=== PATIENT | male | born 1980 | race Caucasian/White ===

== ENCOUNTER 2024-05-29 10:37 | Emergency (ER) | payer BC, SELFPAY ==
[2024-05-29 10:44] VITALS: BP 141/93
[2024-05-29 11:13] VITALS: BMI 29.3
--- NOTE | 2024-05-29 11:43 | ED.GENMED ---
History of Present Illness
General
Chief Complaint: Allergic Reaction
Source: patient
Exam Limitations: none
Time Seen by Provider: 05/29/24 11:31
History of Present Illness
History of Present Illness:
See MDM
Past History
Past History
ED Past Medical History: None
ED Past Surgical History: None
Social History
Tobacco: Non-smoker
Phy Exam
Physical Exam
Physical Exam:
See MDM
Course
Orders/Labs/Results
Orders:
Orders
05/29/24 11:43
Complete Blood Count/With Diff Urgent
Comprehensive Metabolic Panel Urgent
Abnormal Lab Results
05/29/24
11:43
Absolute Neuts (auto) 6.8 H 10^3/uL
(1.4-6.5)
Absolute Lymphs (auto) 0.7 L 10^3/uL
(1.2-3.4)
Neutrophils % 89.7 H %
(42.2-75.2)
Lymphocytes % 8.6 L %
(20.5-51.1)
Monocytes % 1.3 L %
(1.7-9.3)
Glucose 115 H mg/dl
(70-99)
Albumin 5.2 H g/dl
(3.5-5.0)
05/29/24 11:43
05/29/24 11:43
Vital Signs
Initial and Last Documented VS:
Initial Vital Signs
Temp Pulse Resp BP Pulse Ox
98.2 F 80 16 141/93 98
05/29/24 10:44 05/29/24 10:44 05/29/24 10:44 05/29/24 10:44 05/29/24 10:44
Last Documented Vital Signs
Temp Pulse Resp BP Pulse Ox
98.2 F 80 16 141/93 98
05/29/24 10:44 05/29/24 10:44 05/29/24 10:44 05/29/24 10:44 05/29/24 10:44
MDM/Problems Addressed
Differential Diagnosis Includes:
HPI and MDM Narrative:
44-year-old male presenting for evaluation of mouth tingling. He noted it earlier today. Patient went to urgent care yesterday for presumed allergic reaction. He noted hives and swelling to both hands and feet. He was started on prednisone.
Patient woke up this morning and noted tingling in his lips. The pain in his hands and feet have improved somewhat. On exam, there is no evidence of angioedema or anaphylaxis. He does have very small sores to the inside of his lips and on his
uvula. There is very minimal sores noted on hands and feet as well. We discussed the likelihood of a viral syndrome such as coxsackie. Given the mouth tingling, will check calcium levels. Although less likely, we did entertain the possibility of
some autoimmune issue. We discussed that this should at least be followed up with PCP to entertain alternative diagnosis
Physical exam
General: Well appearing and non-toxic
HEENT: protecting airway. Small sores to inside of lips and uvula. Posterior pharynx clear
Neck: supple. No stridor
CV: No evidence of cyanosis
Resp: No accessory muscle use
Abd: Non-distended
Extremities: No deformities
Neuro: alert
Psych: Normal affect
Skin: Small sores to both hands and feet
Problems Addressed including Acute and Chronic Conditions affecting care:
1. Mouth tingling
Acuity: acute
Prognosis: stable
Details: Will check calcium levels
2. Hand and feet discomfort
Acuity: acute
Prognosis: stable
Details: Likely viral syndrome such as coxsackie
Updates
Labs without significantly abnormal blood work. Discussed follow-up with PCP
Differential Diagnosis (but not limited to): Coxsackie, hypocalcemia, allergic reaction
Testing considered: CANDIS testing
Drug therapy (if applicable): OTC meds, please see d/c instruction regarding Rx drugs
Amount and/or Complexity of Data Reviewed
Clinical info obtained from: Patient
External data reviewed: N/A
Labs I independently reviewed (but not limited to): Calcium normal
Radiology: N/A
Pulse Ox: not hypoxic
EKG independently reviewed: N/A
Toll Line Mechanic: N/A
Critical Care: N/A
Risk of Complication:
Social Determinants of health: Good social support
Discussed with other providers: N/A
Escalation of Care includes Admit/Obs: After being observed in the Emergency Department, pt stable for discharge.
Occasional wrong word or 'sound a like' substitutions may have occurred due to the inherent limitations of voice recognition software. Read the chart carefully and recognize, using context, where substitutions have occurred.
*Critical Care Note
Total Time (30-74mins, 75-104mins- exclusive of procedures): Not Applicable
ED Attending Note
-
Portions of this chart may have been created with voice recognition software.� Occasional wrong word or��sound alike� substitutions may have occurred due to the inherent limitations of voice recognition software.
Discharge Plan
Departure
Patient Disposition: Home (Routine Discharge)
Date of Disposition: 05/29/24
Time of Disposition: 12:48
Patient with high blood pressure during this ER visit?: No
Discharge Problem:
Paresthesia of lower lip
Prescriptions:
No Action
prednisone 20 MG tablet
40 mg PO .TAPER
prednisone 20 MG tablet
20 mg PO DAILY Qty: 10 0RF
Referrals:
Victor Manuel Avila DO [Family Provider] -
Activity Restrictions/Additional Instructions:
Please return for any worsening symptoms.
You may return at any time if you have further concerns.
Please follow up with your doctor at the first available appointment, preferably this week.
As we discussed, this could be related to an allergic reaction or possibly a viral syndrome such as coxsackie which is hand, foot and mouth disease. Although less likely, please have your symptoms reexamined by your doctor to discuss possible
autoimmune issues.
Thank you for choosing [facility].
Interventions
Interventions:
*Risk Screen - Suicide Last Done: 05/29/24 10:44
*General Assessment Last Done: 05/29/24 11:13
*Neglect/Abuse Screening Last Done: 05/29/24 10:44
*ED- Fall Risk Assessment Last Done: 05/29/24 11:13
*ED COVID-19 Vaccine History Last Done: 05/29/24 11:13
ED- Cardiac Assessment Last Done: 05/29/24 11:14
ED- Pulmonary Assessment Last Done: 05/29/24 11:14
ED-Skin Assessment Last Done: 05/29/24 11:14
Discharge Date and Time
Print Language: BHUTANESE
[2024-05-29 11:58] LABS: % Basophils 0.1 % (0-2); % Immature Granulocytes 0.3 % (0-0.5); % Lymphocytes 8.6 % (20.5-51.1); % Monocytes 1.3 % (1.7-9.3); % Neutrophils 89.7 % (42.2-75.2); Absolute Lymphocytes 0.7 10^3/uL (1.2-3.4); Absolute Monocytes 0.1 10^3/uL (0.1-0.6); Absolute Neutrophils 6.8 10^3/uL (1.4-6.5); Hematocrit 42.4 % (39.0-52.0); Hemoglobin 14.4 g/dL (13.0-18.0); Mean Corpuscular Hgb 28.5 pg (27.0-31.0); Mean Corpuscular Volume 83.8 fL (80.0-94.0); Mean Platelet Volume 9.8 fL (7.4-10.4); Nucleated Red Blood Cells % 0 % (-); Platelet Count 210 10^3/uL (130-400); Red Blood Cell Count 5.06 10^6/uL (4.70-6.10); Red Cell Dist. Width 12.5 % (11.5-14.5); White Blood Cell Count 7.6 10^3/uL (4.8-10.8)
[2024-05-29 12:13] LABS: ALT (SGPT) 24 U/L (0-50); AST (SGOT) 24 U/L (17-59); Albumin 5.2 g/dl (3.5-5.0); Alkaline Phosphatase 57 U/L (38-126); Blood Urea Nitrogen 14 mg/dl (9-20); Calcium 9.7 mg/dl (8.4-10.2); Carbon Dioxide 27 mmol/L (22-30); Chloride 106 mmol/L (98-107); Estimated Creatinine Clearance > 125 ml/min; Glucose 115 mg/dl (70-99); Potassium 4.5 mmol/L (3.5-5.1); Sodium 142 mmol/L (135-145); Total Bilirubin 0.9 mg/dl (0.2-1.3); eGFR > 60.00
== END 2024-05-29 13:06 | disposition home or self-care (01) ==
LOC: EMR 10:37
PROVIDERS: EMERGENCY PHYSICIAN Student in an Organized Health Care Education/Training Program; FAMILY PHYSICIAN Family Medicine
DX: R20.2 Paresthesia of skin (principal)
CPT/HCPCS: 99283; 80053; 85025